=== PATIENT | female | born 1960 | race Caucasian/White ===

== ENCOUNTER 2017-04-19 14:54 | Emergency (ER) | payer OTHER ==
[2017-04-19 14:59] VITALS: BMI 36.3
--- NOTE | 2017-04-19 15:00 | PDOC ---
Rapid Medical Evaluation Time Seen by Provider: 04/19/17 14:56 Medical Evaluation: Allergies Allergy/AdvReac Type Severity Reaction Status Date / Time codeine [Codeine] Allergy hallucinati Verified 05/31/15 14:56 ons. 04/19/17 14:56 I have performed a brief in person evaluation of this patient. The patient presents with chief complaint of : left lower abd pain since this am , nausea, diarrhea since yesterday Pertinent PE findings: 171/109 denies headache took her BP meds this AM I have ordered the following: cbc, cmp, amylase , lipase The patient will proceed to the ER for further evaluation.
[2017-04-19 15:17] LABS: EOSINOPHIL 1.9 % (0-4.5); MCH 29.1 pg (25.7-33.7); MCHC 33.4 g/dl (32.0-36.0); NEUTROPHILS 73.7 % (42.8-82.8); PLATELET COUNT 256 K/MM3 (134-434); WHITE BLOOD COUNT 10.3 K/mm3 (4.0-10.0)
[2017-04-19 15:40] LABS: ALBUMIN 3.8 g/dl (3.4-5.0); AMYLASE 40 U/L (25-115); ANION GAP 6 (8-16); CALCIUM 8.3 mg/dL (8.5-10.1); CO2 27 mmol/L (21-32); CREATININE 0.9 mg/dL (0.55-1.02); GLUCOSE,RANDOM 118 mg/dL (74-106); SGOT/AST 25 U/L (15-37); SGPT/ALT 36 U/L (12-78)
[2017-04-19 15:42] LABS: ALK PHOS 147 U/L (45-117); BILIRUBIN,TOTAL 0.4 mg/dL (0.2-1.0); TOT PROT 7.5 g/dl (6.4-8.2)
[2017-04-19] MEDS ORDERED: KETOROLAC TROMETHAMINE 30 MG/1 ML VIAL IVPUSH ONE (16:26)
--- NOTE | 2017-04-19 16:32 | PDOC ---
History of Present Illness - General Chief Complaint: Pain Stated Complaint: ABD PAIN Time Seen by Provider: 04/19/17 14:56 History Source: Patient - History of Present Illness Timing/Duration: reports: other (this am) Abdominal Pain Onset Location: reports: LLQ Past History - Past Medical History Allergies/Adverse Reactions: Allergies Allergy/AdvReac Type Severity Reaction Status Date / Time codeine [Codeine] Allergy hallucinati Verified 04/19/17 14:57 ons. Home Medications: Ambulatory Orders Ibuprofen [Motrin -] 600 mg PO Q6H PRN #24 tablet 10/08/11 Amox-Tr/K Cl [Augmentin - 875Mg Tablet] 1 tab PO BID #14 tablet 05/31/15 Tramadol HCl 50 mg PO QID PRN #12 tablet 05/31/15 COPD: No HTN: Yes Psychiatric Problems: Yes (ANXIETY.) - Surgical History Abdominal Surgery: Yes (TUMMY TUCK.) - Suicide/Smoking/Psychosocial Hx Smoking Status: No Smoking History: Never smoked Number of Cigarettes Smoked Daily: 0 Hx Alcohol Use: No Drug/Substance Use Hx: No Substance Use Type: None Review of Systems - Review of Systems Constitutional: Yes: Chills Respiratory: No: Shortness of Breath Cardiac (ROS): No: Chest Pain ABD/GI: Yes: Diarrhea, Nausea, Abdominal cramping. No: Vomiting : No: Dysuria, Flank Pain, Hematuria *Physical Exam - Vital Signs Last Vital Signs Temp Pulse Resp BP Pulse Ox 97.5 F L 87 18 179/109 96 04/19/17 14:57 04/19/17 14:57 04/19/17 14:57 04/19/17 14:57 04/19/17 14:57 - Physical Exam General Appearance: Yes: Appropriately Dressed. No: Apparent Distress HEENT: positive: Normal Voice Neck: positive: Supple Respiratory/Chest: positive: Lungs Clear, Normal Breath Sounds. negative: Respiratory Distress Cardiovascular: positive: Regular Rate, S1, S2 Gastrointestinal/Abdominal: positive: Tender (to LLQ), Soft Musculoskeletal: negative: CVA Tenderness Integumentary: positive: Dry, Warm Neurologic: positive: Fully Oriented, Alert, Normal Mood/Affect ED Treatment Course - LABORATORY CBC & Chemistry Diagram: 04/19/17 15:09 04/19/17 15:09 - ADDITIONAL ORDERS Additional order review: Laboratory Results 04/19/17 15:09 Sodium 141 Potassium 4.3 Chloride 108 H Carbon Dioxide 27 Anion Gap 6 L BUN 19 H Creatinine 0.9 Creat Clearance w eGFR > 60 Random Glucose 118 H D Calcium 8.3 L Total Bilirubin 0.4 D AST 25 D ALT 36 D Alkaline Phosphatase 147 H Total Protein 7.5 Albumin 3.8 Total Amylase 40 Lipase 144 04/19/17 15:09 RBC 4.81 MCV 87.0 MCHC 33.4 RDW 13.0 MPV 9.0 Neutrophils % 73.7 Lymphocytes % 18.0 Monocytes % 5.4 Eosinophils % 1.9 Basophils % 1.0 - RADIOLOGY Radiology Studies Ordered: Category Date Time Status ABDOMEN & PELVIS CT WITH CONTR [CT] Stat CT Scan 04/19/17 16:22 Ordered Medical Decision Making - Medical Decision Making 04/19/17 16:27 56-year-old female, history of hypertension, depression, anxiety, endorses history of chronic left lower quadrant pain with no findings on multiple evaluations in the past, states she is scheduled for upcoming endoscopy and colonoscopy, here with sudden onset diaphoresis, chills, multiple episodes of diarrhea, nausea and acute worsening of her left lower quadrant pain since this a.m. No bright blood per rectum, melena, fever or chills. See exam Acute on chronic LLQ pain w/ nausea, diarrhea and chills ? gastroenteritis vs diverticulitis -pain control -zofran -IVF -labs -CT Elevated BP States compliant w/ meds No DE LA CRUZ, dizziness, focal weakness, CP or SOB -will rpt after pain is controlled 04/19/17 16:32 *DC/Admit/Observation/Transfer Diagnosis at time of Disposition: Abdominal pain Qualifiers: Abdominal location: left lower quadrant Qualified Code(s): R10.32 - Left lower quadrant pain - Discharge Dispostion Condition at time of disposition: Improved - Referrals Referrals: STAFF,NOT ON [Primary Care Provider] - - Patient Instructions Printed Discharge Instructions: DI for Abdominal Pain-Adult Additional Instructions: The cause of your abdominal pain is unclear at this time as your labs and CT scan were negative Take motrin or tylenol as needed for pain and follow up with your PMD - Post Discharge Activity
[2017-04-19] MEDS ORDERED: KETOROLAC TROMETHAMINE 30 MG/1 ML VIAL ONE (16:40)
[2017-04-19 18:01] LABS: URINE APPEARANCE CLEAR; URINE BILIRUBIN NEGATIVE (NEGATIVE); URINE BLOOD NEGATIVE (NEGATIVE); URINE COLOR LTYELLOW; URINE GLUCOSE (UA) NEGATIVE (NEGATIVE); URINE KETONE NEGATIVE (NEGATIVE); URINE NITRITE NEGATIVE (NEGATIVE); URINE PROTEIN NEGATIVE (NEGATIVE)
--- NOTE | 2017-04-19 19:28 | PDOC ---
*Physical Exam - Vital Signs Last Vital Signs Temp Pulse Resp BP Pulse Ox 97.5 F L 87 18 179/109 96 04/19/17 14:57 04/19/17 14:57 04/19/17 14:57 04/19/17 14:57 04/19/17 14:57 - Physical Exam General Appearance: Yes: Appropriately Dressed Gastrointestinal/Abdominal: positive: Normal Bowel Sounds, Tender (LLQ), Soft ED Treatment Course - LABORATORY CBC & Chemistry Diagram: 04/19/17 15:09 04/19/17 15:09 - ADDITIONAL ORDERS Additional order review: Laboratory Results 04/19/17 04/19/17 16:22 15:09 Sodium 141 Potassium 4.3 Chloride 108 H Carbon Dioxide 27 Anion Gap 6 L BUN 19 H Creatinine 0.9 Creat Clearance w eGFR > 60 Random Glucose 118 H D Calcium 8.3 L Total Bilirubin 0.4 D AST 25 D ALT 36 D Alkaline Phosphatase 147 H Total Protein 7.5 Albumin 3.8 Total Amylase 40 Lipase 144 Urine Color Ltyellow Urine Appearance Clear Urine pH 7.0 Ur Specific Sears 1.015 Urine Protein Negative Urine Glucose (UA) Negative Urine Ketones Negative Urine Blood Negative Urine Nitrite Negative Urine Bilirubin Negative Urine Urobilinogen 2.0 H 04/19/17 15:09 RBC 4.81 MCV 87.0 MCHC 33.4 RDW 13.0 MPV 9.0 Neutrophils % 73.7 Lymphocytes % 18.0 Monocytes % 5.4 Eosinophils % 1.9 Basophils % 1.0 - Medications Given in the ED: ED Medications Discontinued Medications Generic Name Dose Route Start Last Admin Trade Name Freq PRN Reason Stop Dose Admin Ketorolac Tromethamine 30 mg 04/19/17 16:26 04/19/17 16:45 Toradol Injection - IVPUSH 04/19/17 16:27 30 mg ONCE ONE Administration Medical Decision Making - Medical Decision Making 04/19/17 20:14 Patient reports pain relief. asking to eat. will await CTAP results 04/19/17 21:41 CTAP negative. heaptic steaosis, left adnexa calcification otherwise normal. will d/c home. patient is scheduled for outpatient endoscopy and colonoscopy with GICharley mercer recommend close follow up. 04/19/17 21:42 *DC/Admit/Observation/Transfer Diagnosis at time of Disposition: Abdominal pain Qualifiers: Abdominal location: left lower quadrant Qualified Code(s): R10.32 - Left lower quadrant pain - Discharge Dispostion Disposition: HOME Condition at time of disposition: Improved - Referrals Referrals: STAFF,NOT ON [Primary Care Provider] - - Patient Instructions Printed Discharge Instructions: DI for Abdominal Pain-Adult Additional Instructions: Drink plenty of fluids. The cause of your abdominal pain is unclear at this time as your labs and CT scan were negative Take motrin or tylenol as needed for pain and follow up with your PMD - Post Discharge Activity Forms/Work/School Notes: Back to Work
[2017-04-19 19:29] VITALS: BP 147/96; PULSE 62; TEMP 97.3
[2017-04-19 20:59] LABS: URINE LEUK ESTERASE Negative (NEGATIVE)
--- NOTE | 2017-04-20 10:26 | EKG ---
Test Reason : Blood Pressure : / mmHG Vent. Rate : 070 BPM Atrial Rate : 070 BPM P-R Int : 156 ms QRS Dur : 084 ms QT Int : 384 ms P-R-T Axes : 029 045 021 degrees QTc Int : 414 ms NORMAL SINUS RHYTHM NORMAL ECG NO PREVIOUS ECGS AVAILABLE Confirmed by JUAN GOSS, NASRIN ([id number]) on 04/20/2017 10:26:18 AM Referred By: Confirmed By:NASRIN MARTINEZ MD
== END 2017-04-19 21:52 | disposition home or self-care (01) ==
LOC: JER 14:54
PROC: 3E0333Z Introduction of Anti-inflammatory into Peripheral Vein, Percutaneous Approach (ICD-10-PCS; principal; 2017-04-19)
DX: R10.32 Left lower quadrant pain (principal); I10 Essential (primary) hypertension; F41.9 Anxiety disorder, unspecified
CPT/HCPCS: 36415; 74177-TC; 80053; 81003; 82150; 83690; 85025; 93005; 93010; 99282-25

== ENCOUNTER 2018-04-07 05:39 | Emergency (ER) | payer OTHER ==
[2018-04-07 06:03] VITALS: BP 165/84; PULSE 74; TEMP 97.3; BMI 34.9
--- NOTE | 2018-04-07 06:14 | PDOC ---
History of Present Illness - General Chief Complaint: Chronic pain Stated Complaint: PAIN,LT LEG Time Seen by Provider: 04/07/18 05:58 History Source: Patient - History of Present Illness Initial Comments: 04/07/18 06:31 57 year old female reports that she felt pot in her left knee while pushing a heavy cart at work in july 2017. since then she has been having pain to the left knee. she was seen [facility] s/p xray, she was referred to PT. patient reports that PT didnt help and patient stopped going to PT several months ago. patient reports feeling and sweating at 04/07/18 06:32 Past History - Past Medical History Allergies/Adverse Reactions: Allergies Allergy/AdvReac Type Severity Reaction Status Date / Time codeine [Codeine] Allergy hallucinati Verified 04/07/18 05:56 ons. Home Medications: Ambulatory Orders Ibuprofen [Ibu] 600 mg PO QID PRN #20 tablet 04/07/18 COPD: No HTN: Yes Psychiatric Problems: Yes (ANXIETY.) - Surgical History Abdominal Surgery: Yes (TUMMY TUCK.) - Suicide/Smoking/Psychosocial Hx Smoking Status: No Smoking History: Never smoked Have you smoked in the past 12 months: No Number of Cigarettes Smoked Daily: 0 Information on smoking cessation initiated: No Hx Alcohol Use: No Drug/Substance Use Hx: No Substance Use Type: None Review of Systems - Review of Systems Able to Perform ROS?: Yes Is the patient limited Maori proficient: No Musculoskeletal: Yes: Other (knee pain) *Physical Exam - Vital Signs Last Vital Signs Temp Pulse Resp BP Pulse Ox 97.3 F L 74 20 165/84 97 04/07/18 05:56 04/07/18 05:56 04/07/18 05:56 04/07/18 05:56 04/07/18 05:56 - Physical Exam General Appearance: Yes: Appropriately Dressed Musculoskeletal: positive: Normal Inspection, Other (left knee swelling) Extremity: positive: Other (left knee swelling. not warm to touch. able to leg raise. ) Integumentary: positive: Normal Color, Dry, Warm Medical Decision Making - Medical Decision Making A: knee pain Nisha control RICE xray outpatient ortho follow up *DC/Admit/Observation/Transfer Diagnosis at time of Disposition: Muscle ache of extremity Knee pain, left Qualifiers: Chronicity: acute Qualified Code(s): M25.562 - Pain in left knee - Discharge Dispostion Disposition: HOME Condition at time of disposition: Fair - Prescriptions Prescriptions: Ibuprofen [Ibu] 600 mg PO QID PRN #20 tablet PRN Reason: Mild Pain - Referrals Referrals: Cayden Linares [Primary Care Provider] - Neto Soliman MD [Staff Physician] - Call tomorrow - Patient Instructions Printed Discharge Instructions: DI for Knee Effusion Additional Instructions: please follow up with an orthopedic doctor as soon as possible. take ibuprofen as prescribed. r - Post Discharge Activity Forms/Work/School Notes: Back to Work
[2018-04-07] MEDS ORDERED: KETOROLAC TROMETHAMINE 30 MG/1 ML VIAL IM ONE (06:15)
[2018-04-07] MEDS ORDERED: KETOROLAC TROMETHAMINE 30 MG/1 ML VIAL ONE (06:21)
--- NOTE | 2018-04-07 07:24 | PDOC ---
*Physical Exam - Vital Signs Last Vital Signs Temp Pulse Resp BP Pulse Ox 97.3 F L 74 20 165/84 97 04/07/18 05:56 04/07/18 05:56 04/07/18 05:56 04/07/18 05:56 04/07/18 05:56 ED Treatment Course - Medications Given in the ED: ED Medications Discontinued Medications Generic Name Dose Route Start Last Admin Trade Name Freq PRN Reason Stop Dose Admin Ketorolac Tromethamine 30 mg 04/07/18 06:15 04/07/18 06:19 Toradol Injection - IM 04/07/18 06:16 30 mg ONCE ONE Administration Medical Decision Making - Medical Decision Making 04/07/18 06:59 Chronic persistent L knee px after injury 07/2017. Pt describes straining while moving a heavy load and then a pop in her L knee. Was started on PT but she quit after marginal results. 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 analgesia f/u xr dc with close ortho follow up, out pt mri, pt *DC/Admit/Observation/Transfer Diagnosis at time of Disposition: Muscle ache of extremity - Prescriptions Prescriptions: Ibuprofen [Ibu] 600 mg PO QID PRN #20 tablet PRN Reason: Mild Pain - Referrals Referrals: Cayden Linares [Primary Care Provider] - - Patient Instructions - Post Discharge Activity
== END 2018-04-07 07:08 | disposition home or self-care (01) ==
LOC: JER 05:39
PROC: 3E0233Z Introduction of Anti-inflammatory into Muscle, Percutaneous Approach (ICD-10-PCS; principal; 2018-04-07)
DX: M25.562 Pain in left knee (principal); F41.9 Anxiety disorder, unspecified; I10 Essential (primary) hypertension
CPT/HCPCS: 73564-TC-LT-FY; 99282-25

== ENCOUNTER 2019-01-26 06:45 | Day surgery (SDC) | payer OTHER ==
[2019-01-20 15:52] VITALS: BMI 34.5
[2019-01-26] MEDS ORDERED: LACTATED RINGERS SOLUTION 1,000 ML IV SCH (07:30)
[2019-01-26] MEDS ORDERED: oxyCODONE HCL 5 MG TABLET PO PRN ×2 (07:30)
[2019-01-26] MEDS ORDERED: ONDANSETRON 4 MG/2 ML VIAL IVPUSH PRN (07:30)
[2019-01-26] MEDS ORDERED: LIDOCAINE HCL/PF 2% SDV 5ML VIAL ONE (07:44)
[2019-01-26] MEDS ORDERED: PROPOFOL 20 ML ONE ×2 (07:45→08:47)
[2019-01-26] MEDS ORDERED: DEXAMETHASONE SOD PHOSPHATE 4 MG/1 ML VIAL ONE (07:46)
[2019-01-26] MEDS ORDERED: KETOROLAC TROMETHAMINE 30 MG/1 ML VIAL ONE (07:46)
[2019-01-26] MEDS ORDERED: MIDAZOLAM HCL 2 MG/2 ML SINGLE DOSE VIAL ONE (07:57)
[2019-01-26] MEDS ORDERED: BUPIVACAINE HCL 0.25% 125 MG/50 ML VIAL ONE (08:23)
--- NOTE | 2019-01-26 08:38 | OP ---
Operative Note - Note: Operative Date: 01/26/19 Pre-Operative Diagnosis: Left medial meniscus tear Operation: Partial left medial meniscectomy Post-Operative Diagnosis: Same as Pre-op Surgeon: Neto Soliman [employer] Attorney: Pricila Veliz Anesthesia: General Operative Report Dictated: Yes
--- NOTE | 2019-01-26 10:13 | OP ---
DATE OF OPERATION: 01/26/2019 PREOPERATIVE DIAGNOSIS: Left knee medial meniscal tear. POSTOPERATIVE DIAGNOSIS: Left knee medial meniscal tear. PROCEDURE: Left knee arthroscopy with partial medial meniscectomy. SURGEON: Neto Rios MD CLINICAL REHABILITATION SPECIALIST: KATIE Mchugh ANESTHESIA: General. POSTOPERATIVE CONDITION: Stable. COMPLICATIONS: None. INDICATIONS: This is a pleasant woman who had been suffering from medial knee pain. Treatment options including nonoperative versus operative treatment were discussed. Operative risks were reviewed in detail including bleeding, infection, neurovascular injury, need for further surgery, postoperative pain and stiffness, progression of osteoarthritis. We discussed medical risks such as heart attack, stroke, DVT, PE, or . I addressed the patient's questions and concerns. She voiced understanding and elected to proceed. DESCRIPTION OF PROCEDURE: The patient was brought to the operating room where general anesthetic was administered. The left lower extremity was then prepped and draped in the usual sterile fashion. A preoperative dose of antibiotics was given, and the usual timeout procedure was performed. The portal sites were then marked out and injected subcutaneously with 0.25% Marcaine. A lateral portal was now established. Arthroscope was passed into the patellofemoral joint. Examination of the patellofemoral joint demonstrated moderate partial-thickness chondral loss along the patellar surface. There was superficial streak wear along the trochlea. Passing the arthroscope into the notch demonstrated intact ACL and PCL. A medial portal was now established under spinal needle localization. The medial compartment was examined. The medial femoral condyle demonstrated also moderate, partial-thickness, diffuse chondral changes with a small area of full-thickness chondral loss along the anterior aspect of the condyle. The meniscus was inspected, demonstrating a complex tear involving mostly the posterior horn, but extending into the body. Utilizing a combination of meniscal biters and a shaver, the medial meniscus was debrided down to a stable base. Attention was then turned laterally. Here, the lateral compartment was inspected. There was mild superficial articular wear. The meniscus itself appeared intact and was probed and found to be stable. At this point, the excess fluid was withdrawn from the joint. The portals were sutured using 3-0 nylon. Sterile dressings were placed. Patient was extubated and transferred to recovery room in stable condition. NETO RIOS M.D. [id number]
[2019-01-26 12:21] VITALS: TEMP 97.7
[2019-01-26 12:28] VITALS: BP 137/77; PULSE 78
== END 2019-01-26 12:00 | disposition home or self-care (01) ==
LOC: FASU 06:45
PROVIDERS: ATTEND Orthopaedic Surgery Sports Medicine
PROC: 0SBD4ZZ Excision of Left Knee Joint, Percutaneous Endoscopic Approach (ICD-10-PCS; principal; 2019-01-26 09:06)
DX: S83.242A Other tear of medial meniscus, current injury, left knee, initial encounter (principal); X58.XXXA Exposure to other specified factors, initial encounter; Y93.9 Activity, unspecified; Y92.9 Unspecified place or not applicable
CPT/HCPCS: 94760

== ENCOUNTER 2019-11-16 07:36 | Day surgery (SDC) | payer OTHER ==
[2019-11-14 12:34] VITALS: BMI 34.7
[2019-11-16] MEDS ORDERED: MIDAZOLAM HCL 2 MG/2 ML SINGLE DOSE VIAL ONE (08:35)
[2019-11-16 09:12] VITALS: TEMP 97.8
[2019-11-16 09:47] VITALS: BP 127/77; PULSE 76
== END 2019-11-16 10:54 | disposition home or self-care (01) ==
LOC: JASU-ENDO 07:36
PROVIDERS: ATTEND Internal Medicine Gastroenterology
PROC: 0DB68ZX Excision of Stomach, Via Natural or Artificial Opening Endoscopic, Diagnostic (ICD-10-PCS; principal; 2019-11-16 09:00)
DX: K29.50 Unspecified chronic gastritis without bleeding (principal); I10 Essential (primary) hypertension; R10.13 Epigastric pain
CPT/HCPCS: 88305-TC; 88342-TC

== ENCOUNTER 2019-11-21 04:50 | Day surgery (SDC) | payer OTHER ==
[2019-11-20 08:23] VITALS: BMI 34.9
[2019-11-21 09:05] VITALS: TEMP 98.5
[2019-11-21 09:34] VITALS: BP 127/73
[2019-11-21 09:52] VITALS: PULSE 70
== END 2019-11-21 10:30 | disposition home or self-care (01) ==
LOC: JASU-ENDO 04:50
PROVIDERS: ATTEND Internal Medicine Gastroenterology
PROC: 0DJD8ZZ Inspection of Lower Intestinal Tract, Via Natural or Artificial Opening Endoscopic (ICD-10-PCS; principal; 2019-11-21 09:00)
DX: Z12.11 Encounter for screening for malignant neoplasm of colon (principal); K64.8 Other hemorrhoids; R10.9 Unspecified abdominal pain

== ENCOUNTER 2020-05-29 10:53 | Day surgery (SDC) | payer OTHER ==
[2020-05-22 15:46] VITALS: BMI 36.3
[2020-05-29 11:38] VITALS: BP 143/85; PULSE 78; TEMP 98
== END 2020-05-29 17:31 | disposition home or self-care (01) ==
LOC: FM/S 10:53 → UNDOADMIN 10:53 → FASUSAT 10:53 → EDSTATUS 13:00 → FASUSAT 17:31 → UNDODISIN 17:31
PROVIDERS: ATTEND Orthopaedic Surgery
PROC: 0SRD0JZ Replacement of Left Knee Joint with Synthetic Substitute, Open Approach (ICD-10-PCS; principal; 2020-05-29)
DX: Z53.8 Procedure and treatment not carried out for other reasons (principal); S83.232A Complex tear of medial meniscus, current injury, left knee, initial encounter; W19.XXXA Unspecified fall, initial encounter; Z91.81 History of falling; Y93.9 Activity, unspecified; Y92.9 Unspecified place or not applicable

== ENCOUNTER 2020-05-29 12:34 | Emergency (ER) | payer OTHER ==
[2020-05-29 12:53] VITALS: BP 140/83; PULSE 71; TEMP 98.9; BMI 36.3
== END 2020-05-29 16:16 | disposition home or self-care (01) ==
LOC: FER 12:34
DX: M25.522 Pain in left elbow (principal); R53.1 Weakness; M25.562 Pain in left knee
CPT/HCPCS: 70450-TC; 72125-TC; 73070-TC-LT-FY; 73562-TC-LT-FY; 99285-25

== ENCOUNTER 2020-07-24 10:00 | Day surgery (SDC) | payer OTHER ==
[2020-07-12 12:31] VITALS: BMI 36.3
[2020-07-24] MEDS ORDERED: VANCOMYCIN 1,000 MG VIAL (RESTRICTED TO ID ONLY) ONE (10:37)
[2020-07-24] MEDS ORDERED: PROPOFOL 20 ML ONE ×2 (11:09)
[2020-07-24] MEDS ORDERED: DEXAMETHASONE SOD PHOSPHATE 10 MG/1 ML VIAL ONE (11:12)
[2020-07-24] MEDS ORDERED: MIDAZOLAM HCL 2 MG/2 ML SINGLE DOSE VIAL ONE ×2 (11:12→12:46)
[2020-07-24] MEDS ORDERED: BUPIVACAINE HCL/PF 0.5% (5 MG/ML) 30 ML VIAL IJ ONE (11:13)
[2020-07-24] MEDS ORDERED: ceFAZolin SODIUM 1 GM VIAL ONE ×2 (12:40→21:24)
[2020-07-24] MEDS ORDERED: TRANEXAMIC ACID 1000 MG/10 ML VIAL ONE (12:40)
[2020-07-24] MEDS ORDERED: BUPIVICAINE 0.25%/MORPH PF/KETOROLAC - 51ML DISP.SYRINGE IA ONE ×2 (12:54→13:48)
[2020-07-24] MEDS ORDERED: ONDANSETRON 4 MG/2 ML VIAL ONE (13:02)
[2020-07-24] MEDS ORDERED: MAGNESIUM HYDROX 2400MG/30ML ORAL SUSPENSION 30 ML CUP PO PRN (14:42)
[2020-07-24] MEDS ORDERED: MAG HYDROX/AL HYDROX/SIMETH 30 ML UNIT-DOSE CUP PO PRN (14:42)
[2020-07-24] MEDS ORDERED: ONDANSETRON 4 MG/2 ML VIAL IVPUSH PRN ×2 (14:42→14:44)
[2020-07-24] MEDS ORDERED: PROMETHAZINE HCL 25 MG/1 ML VIAL IVPUSH PRN (14:44)
[2020-07-24] MEDS ORDERED: LACTATED RINGERS SOLUTION 1,000 ML IV SCH (14:45)
[2020-07-24] MEDS ORDERED: ACETAMINOPHEN 325 MG TABLET (FP) ONE (15:21)
[2020-07-24] MEDS: ACETAMINOPHEN 325 MG TABLET (FP) PO SCH (15:25)
[2020-07-24] MEDS ORDERED: ACETAMINOPHEN 325 MG TABLET (FP) PO PRN (16:12)
[2020-07-24] MEDS: oxyCODONE HCL 5 MG TABLET PO PRN ×2 (18:22→23:49)
[2020-07-24] MEDS ORDERED: DEXTROSE 5%-WATER 100 ML IVPB ONE (21:25)
[2020-07-24] MEDS: SENNOSIDES/DOCUSATE COMBO (SENNA PLUS) TABLET (UD) PO SCH (21:37)
[2020-07-24] MEDS: CEFAZOLIN 2 GM in DEXTROSE 5%-WATER 100 ML IVPB SCH (21:37)
[2020-07-25] MEDS ORDERED: ceFAZolin SODIUM 1 GM VIAL ONE (01:05)
[2020-07-25] MEDS ORDERED: DEXTROSE 5%-WATER 100 ML IVPB ONE (01:06)
[2020-07-25] MEDS: CEFAZOLIN 2 GM in DEXTROSE 5%-WATER 100 ML IVPB SCH (01:13)
[2020-07-25] MEDS: oxyCODONE HCL 5 MG TABLET PO PRN ×3 (06:10→13:36)
[2020-07-25 07:47] LABS: HEMATOCRIT 39.7 % (32.4-45.2); HEMOGLOBIN 13.1 GM/dl (10.7-15.3); MCH 29.7 pg (25.7-33.7); MEAN CELL VOLUME 89.9 fl (80-96); MEAN PLT VOLUME 8.8 fl (7.5-11.1); PLATELET COUNT 283 K/MM3 (134-434); RBC 4.41 M/mm3 (3.60-5.2); RDW 12.3 % (11.6-15.6); WHITE BLOOD COUNT 15.7 K/mm3 (4.0-10.8)
[2020-07-25 07:48] LABS: CALCIUM 8.9 mg/dl (8.5-10); CREATININE 0.8 mg/dl (0.55-1.3); POTASSIUM 4.3 mmol/L (3.5-5.1)
[2020-07-25] MEDS ORDERED: CEFAZOLIN 2 GM/D5W 2 GM/50 ML ML IVPB SCH (09:34)
[2020-07-25] MEDS: SENNOSIDES/DOCUSATE COMBO (SENNA PLUS) TABLET (UD) PO SCH (09:42)
[2020-07-25] MEDS: ACETAMINOPHEN 325 MG TABLET (FP) PO SCH (09:44)
[2020-07-25] MEDS ORDERED: TOPIRAMATE 25 MG TABLET PO SCH (10:00)
[2020-07-25] MEDS ORDERED: MULTIVITAMINS (DAILY MVI) TABLET (FP) PO SCH (10:00)
[2020-07-25] MEDS ORDERED: PANTOPRAZOLE 40 MG TABLET PO SCH (10:00)
[2020-07-25] MEDS ORDERED: MED PO SCH (10:00)
[2020-07-25] MEDS ORDERED: ENOXAPARIN NA (PORCINE) 40 MG/0.4 ML DISP.SYRIN SQ SCH (12:00)
[2020-07-25 16:08] VITALS: BP 141/72; PULSE 85; TEMP 98.7
== END 2020-07-25 17:21 | disposition home or self-care (01) ==
LOC: FASUSAT 10:00 → EDSTATUS 12:00 → FM/S 15:55 → FASUSAT 07-25 17:21
PROVIDERS: ATTEND Orthopaedic Surgery
PROC: 8E0YXBZ Computer Assisted Procedure of Lower Extremity (ICD-10-PCS; 2020-07-24)
PROC: 0SRD0L9 Replacement of Left Knee Joint with Medial Unicondylar Synthetic Substitute, Cemented, Open Approach (ICD-10-PCS; principal; 2020-07-24 12:51)
DX: M17.12 Unilateral primary osteoarthritis, left knee (principal); I10 Essential (primary) hypertension; D50.9 Iron deficiency anemia, unspecified; F41.8 Other specified anxiety disorders
CPT/HCPCS: 27446; C1776; 36415; 73560-TC-LT-FY; 80048; 85027; 94760; 97010-GP; 97116-GP; 97161-GP; J1100

== ENCOUNTER 2021-03-25 15:17 | Emergency (ER) | payer OTHER ==
[2021-03-25 15:27] VITALS: TEMP 98; BMI 36.3
[2021-03-25] MEDS ORDERED: ACETAMINOPHEN 1000 MG/100 ML VIAL IVPB ONE (16:52)
[2021-03-25] MEDS ORDERED: ONDANSETRON 4 MG/2 ML VIAL IVPUSH ONE (16:52)
[2021-03-25] MEDS ORDERED: ACETAMINOPHEN INJECTION 100 ML IVPB ONE (17:08)
[2021-03-25] MEDS ORDERED: ONDANSETRON 4 MG/2 ML VIAL ONE (17:08)
[2021-03-25 17:46] LABS: EOS % 1.6 % (0-4.5); HEMATOCRIT 44.5 % (32.4-45.2); HEMOGLOBIN 14.7 GM/dL (10.7-15.3); LYMPH % 24.3 % (8-40); MCHC 33.1 g/dl (32.0-36.0); MEAN CELL VOLUME 87.6 fl (80-96); MONO % 4.7 % (3.8-10.2); NEUT % 68.4 % (42.8-82.8); PLATELET COUNT 288 10^3/uL (134-434); RBC 5.08 M/mm3 (3.60-5.2); RDW 13.3 % (11.6-15.6); WHITE BLOOD COUNT 10.8 K/mm3 (4.0-10.0)
[2021-03-25 17:49] LABS: EPI CELLS 27 /uL (0-25.1); HYALINE CASTS 1 /uL (0-3.1); URINE APPEARANCE CLEAR; URINE BACTERIA 1674 /uL (0-1359); URINE BILIRUBIN NEGATIVE (NEGATIVE); URINE COLOR YELLOW; URINE GLUCOSE (UA) NEGATIVE (NEGATIVE); URINE KETONE TRACE (NEGATIVE); URINE LEUK ESTERASE NEGATIVE (NEGATIVE); URINE NITRITE NEGATIVE (NEGATIVE); URINE PROTEIN NEGATIVE (NEGATIVE); URINE RBC 23 /uL (0-23.9); URINE WBC 20 /uL (0-25.8)
[2021-03-25 18:11] LABS: BLOOD UREA NITROGEN 19.1 mg/dL (7-18); CALCIUM 9.1 mg/dL (8.5-10.1)
[2021-03-25 18:14] LABS: CREATININE 0.8 mg/dL (0.55-1.3)
[2021-03-25 18:16] LABS: BILIRUBIN,TOTAL 0.5 mg/dL (0.2-1); TOT PROT 7.9 g/dl (6.4-8.2)
[2021-03-25 21:22] VITALS: BP 129/78; PULSE 88
== END 2021-03-25 21:20 | disposition home or self-care (01) ==
LOC: JER 15:17
PROC: 3E0333Z Introduction of Anti-inflammatory into Peripheral Vein, Percutaneous Approach (ICD-10-PCS; principal; 2021-03-25)
PROC: 3E033GC Introduction of Other Therapeutic Substance into Peripheral Vein, Percutaneous Approach (ICD-10-PCS; 2021-03-25)
DX: R10.9 Unspecified abdominal pain (principal); N93.9 Abnormal uterine and vaginal bleeding, unspecified
CPT/HCPCS: 36415; 71045-TC-FY; 74177-TC; 76830-TC; 80053; 81003; 83690; 85025; 87086; 99285-25; C9803; J0131; Q9967; U0003; U0005

== ENCOUNTER 2021-08-28 04:21 | Day surgery (SDC) | payer OTHER ==
[2021-08-28 08:16] VITALS: BMI 35.3
[2021-08-28 09:39] VITALS: TEMP 98.1
[2021-08-28 10:10] VITALS: BP 108/62; PULSE 68
== END 2021-08-28 10:51 | disposition home or self-care (01) ==
LOC: JASU-ENDO 04:21
PROVIDERS: ATTEND Internal Medicine Gastroenterology
PROC: 0DJD8ZZ Inspection of Lower Intestinal Tract, Via Natural or Artificial Opening Endoscopic (ICD-10-PCS; principal; 2021-08-28 08:45)
DX: Z12.11 Encounter for screening for malignant neoplasm of colon (principal); K64.8 Other hemorrhoids; I10 Essential (primary) hypertension

== ENCOUNTER 2022-09-19 14:26 | Inpatient (IN) | payer OTHER ==
[2022-09-19] MEDS ORDERED: ASPIRIN 81 MG CHEWABLE TABLETS PO ONE (14:56)
[2022-09-19] MEDS ORDERED: LABETALOL HCL 5 MG/1 ML (100MG/20 ML VIAL) IVPUSH ONE ×3 (15:05→15:48)
[2022-09-19] MEDS ORDERED: ACETAMINOPHEN 1000 MG/100 ML BAG IVPB ONE (15:08)
[2022-09-19] MEDS ORDERED: ACETAMINOPHEN INJECTION 100 ML IVPB ONE (15:21)
[2022-09-19] MEDS ORDERED: LABETALOL HCL 20 MG/4 ML VIAL ONE ×2 (15:21→15:56)
[2022-09-19] MEDS ORDERED: ASPIRIN 81 MG CHEWABLE TABLETS ONE (15:21)
[2022-09-19 15:34] LABS: HEMATOCRIT 49.6 % (32.4-45.2); HEMOGLOBIN 16.8 GM/dL (10.7-15.3); MCH 29.3 pg (25.7-33.7); MCHC 33.8 g/dl (32.0-36.0); MEAN CELL VOLUME 86.5 fl (80-96); PLATELET COUNT 381 10^3/uL (134-434); RBC 5.74 M/mm3 (3.60-5.2); RDW 13.4 % (11.6-15.6); WHITE BLOOD COUNT 21.4 K/mm3 (4.0-10.0)
[2022-09-19 15:40] LABS: INR 1.06 (0.83-1.09); PROTHROMBIN TIME (PATIENT) 12.3 SEC (9.7-13.0)
[2022-09-19 15:43] LABS: ACTIVATED PTT 32.8 SECONDS (25.2-36.5)
[2022-09-19] MEDS ORDERED: METOCLOPRAMIDE HCL INJECTION 10 MG/2 ML VIAL IVPB ONE (15:48)
[2022-09-19] MEDS ORDERED: FAMOTIDINE 20 MG/50 ML IVPB 20 MG/50 ML MG IVPB ONE (15:48)
[2022-09-19] MEDS ORDERED: PIPERACILLIN/TAZOB 4.5 GM 4.5 GM in DEXTROSE 5%-WATER 100 ML IVPB ONE (15:55)
[2022-09-19] MEDS ORDERED: METOCLOPRAMIDE HCL INJECTION 10 MG/2 ML VIAL ONE (16:00)
[2022-09-19] MEDS ORDERED: FAMOTIDINE 10 MG/ML VIAL IVPB ONE (16:00)
[2022-09-19] MEDS ORDERED: PIPERACILLIN/TAZOB 4.5 GM 4.5 GM/100 ML BAG IVPB ONE (16:00)
[2022-09-19 16:01] LABS: CALCIUM 9.6 mg/dL (8.5-10.1)
[2022-09-19 16:02] LABS: ALBUMIN 4.7 g/dl (3.4-5.0); BLOOD UREA NITROGEN 13.4 mg/dL (7-18); MAGNESIUM 1.9 mg/dL (1.8-2.4)
[2022-09-19 16:06] LABS: BILIRUBIN,TOTAL 0.7 mg/dL (0.2-1); TOT PROT 9.6 g/dl (6.4-8.2)
[2022-09-19 16:18] LABS: ANISOCYTOSIS 2+; MACROCYTOSIS 0
[2022-09-19 16:22] LABS: LACTIC ACID 4.2 mmol/L (0.4-2.0)
[2022-09-19 16:50] LABS: POTASSIUM 4.3 mmol/L (3.5-5.1)
[2022-09-19 16:51] LABS: CALCIUM 9.5 mg/dL (8.5-10.1)
[2022-09-19 16:55] LABS: CREATININE 0.9 mg/dL (0.55-1.3)
[2022-09-19 18:01] LABS: EPI CELLS 21 /uL (0-25.1); HYALINE CASTS 2 /uL (0-3.1); URINE APPEARANCE CLEAR; URINE BACTERIA 4 /uL (0-1359); URINE BILIRUBIN NEGATIVE (NEGATIVE); URINE COLOR YELLOW; URINE GLUCOSE (UA) TRACE (NEGATIVE); URINE KETONE TRACE (NEGATIVE); URINE LEUK ESTERASE NEGATIVE (NEGATIVE); URINE NITRITE NEGATIVE (NEGATIVE); URINE PROTEIN 4+ (NEGATIVE); URINE UROBILINOGEN 0.2 mg/dL (0.2-1.0); URINE WBC 5 /uL (0-25.8)
[2022-09-19 18:36] LABS: LACTIC ACID 5.6 mmol/L (0.4-2.0)
[2022-09-19] MEDS ORDERED: SODIUM CHLORIDE 0.9% 500 ML INFUS.BAG IV ONE (18:39)
[2022-09-19 18:41] LABS: URINE RBC 167.4 /uL (0-23.9); YEAST OCCASIONAL (NEGATIVE)
[2022-09-19 21:55] LABS: LACTIC ACID 3.3 mmol/L (0.4-2.0)
[2022-09-19] MEDS: LACTATED RINGERS SOLUTION 1,000 ML IV SCH (22:09)
[2022-09-20] MEDS ORDERED: PIPERACILLIN/TAZOB 3.375 GM 3.375 GM in DEXTROSE 5%-WATER - 50 ML IVPB SCH (00:01)
[2022-09-20 01:07] VITALS: BMI 36.3
[2022-09-20] MEDS: CEFOXITIN SODIUM 1 GM in DEXTROSE 5%-WATER 100 ML IVPB SCH ×3 (03:25→18:03)
[2022-09-20] MEDS ORDERED: ACETAMINOPHEN 1000 MG/100 ML BAG IVPB ONE (05:09)
[2022-09-20 08:34] LABS: HEMATOCRIT 39.3 % (32.4-45.2); HEMOGLOBIN 13.2 GM/dL (10.7-15.3); MCH 29.1 pg (25.7-33.7); MCHC 33.6 g/dl (32.0-36.0); MEAN CELL VOLUME 86.5 fl (80-96); MEAN PLT VOLUME 8.9 fl (7.5-11.1); PLATELET COUNT 271 10^3/uL (134-434); RBC 4.54 M/mm3 (3.60-5.2); RDW 13.3 % (11.6-15.6); WHITE BLOOD COUNT 13.9 K/mm3 (4.0-10.0)
[2022-09-20 08:39] LABS: INR 1.1 (0.83-1.09); PROTHROMBIN TIME (PATIENT) 12.8 SEC (9.7-13.0)
[2022-09-20 08:42] LABS: ACTIVATED PTT 30.1 SECONDS (25.2-36.5)
[2022-09-20 08:48] LABS: POTASSIUM 3.4 mmol/L (3.5-5.1)
[2022-09-20 08:50] LABS: BLOOD UREA NITROGEN 14.5 mg/dL (7-18); CALCIUM 8.2 mg/dL (8.5-10.1); MAGNESIUM 1.9 mg/dL (1.8-2.4)
[2022-09-20 08:53] LABS: CREATININE 0.7 mg/dL (0.55-1.3)
[2022-09-20 08:55] LABS: BILIRUBIN,TOTAL 0.6 mg/dL (0.2-1)
[2022-09-20 08:57] LABS: PHOSPHOROUS 2.6 mg/dL (2.5-4.9)
[2022-09-20 09:00] LABS: ALBUMIN 3.4 g/dl (3.4-5.0); TOT PROT 6.6 g/dl (6.4-8.2)
[2022-09-20] MEDS: ARIPiprazole 2 MG TABLET PO SCH (09:25)
[2022-09-20] MEDS: KCL 10 MEQ IVPB 10 MEQ/100 ML INFUS.BAG IVPB SCH ×2 (11:51→13:43)
[2022-09-20] MEDS ORDERED: ACETAMINOPHEN 325 MG TABLET (FP) PO ONE (17:45)
[2022-09-20] MEDS: LACTATED RINGERS SOLUTION 1,000 ML IV SCH (20:00)
[2022-09-21] MEDS ORDERED: PIPERACILLIN/TAZOB 3.375 GM 3.375 GM in DEXTROSE 5%-WATER - 50 ML IVPB SCH (03:00)
[2022-09-21] MEDS: CEFOXITIN SODIUM 1 GM in DEXTROSE 5%-WATER 100 ML IVPB SCH ×2 (03:38→10:13)
[2022-09-21 08:42] LABS: INR 1.1 (0.83-1.09); PROTHROMBIN TIME (PATIENT) 12.8 SEC (9.7-13.0)
[2022-09-21 08:43] LABS: ACTIVATED PTT 29.8 SECONDS (25.2-36.5); BASO % 0.8 % (0-2.0); EOS % 1.6 % (0-4.5); HEMATOCRIT 39.3 % (32.4-45.2); HEMOGLOBIN 13.5 GM/dL (10.7-15.3); MCH 29.6 pg (25.7-33.7); MCHC 34.3 g/dl (32.0-36.0); MEAN CELL VOLUME 86.1 fl (80-96); MEAN PLT VOLUME 8.6 fl (7.5-11.1); MONO % 5.1 % (3.8-10.2); NEUT % 75.5 % (42.8-82.8); PLATELET COUNT 263 10^3/uL (134-434); RBC 4.56 M/mm3 (3.60-5.2); RDW 13.2 % (11.6-15.6); WHITE BLOOD COUNT 9.5 K/mm3 (4.0-10.0)
[2022-09-21 08:57] LABS: POTASSIUM 3.8 mmol/L (3.5-5.1)
[2022-09-21 09:00] LABS: CALCIUM 8.6 mg/dL (8.5-10.1)
[2022-09-21 09:01] LABS: ALBUMIN 3.7 g/dl (3.4-5.0); BLOOD UREA NITROGEN 10.9 mg/dL (7-18); MAGNESIUM 2.2 mg/dL (1.8-2.4)
[2022-09-21 09:04] LABS: CREATININE 0.7 mg/dL (0.55-1.3); PHOSPHOROUS 2.1 mg/dL (2.5-4.9)
[2022-09-21 09:05] LABS: BILIRUBIN,TOTAL 0.8 mg/dL (0.2-1)
[2022-09-21 09:06] LABS: TOT PROT 6.8 g/dl (6.4-8.2)
[2022-09-21] MEDS: ARIPiprazole 2 MG TABLET PO SCH (10:14)
[2022-09-21] MEDS ORDERED: LIDOCAINE HCL/PF 2% SDV 5ML VIAL ONE (13:47)
[2022-09-21] MEDS ORDERED: PROPOFOL 20 ML ONE (13:47)
[2022-09-21] MEDS ORDERED: MIDAZOLAM HCL 2 MG/2 ML SINGLE DOSE VIAL ONE (13:48)
[2022-09-21] MEDS ORDERED: ROCURONIUM BROMIDE 50 MG/5 ML SYRINGE ONE (13:48)
[2022-09-21] MEDS ORDERED: SUCCINYLCHOLINE CHLORIDE 200 MG/10 ML SYRINGE ONE (13:48)
[2022-09-21] MEDS ORDERED: BUPIVACAINE HCL/PF 0.5% (5MG/ML) 10 ML VIAL ONE (14:13)
[2022-09-21] MEDS ORDERED: HEPARIN NA (PORCINE) 5,000 UNITS/ML 1ML VIAL ONE (14:31)
[2022-09-21] MEDS ORDERED: BUPIVACAINE HCL/PF 0.5% (5 MG/ML) 30 ML VIAL IJ ONE (14:49)
[2022-09-21] MEDS ORDERED: hydrALAZINE HCL 20 MG/ML VIAL ONE (15:00)
[2022-09-21] MEDS ORDERED: ONDANSETRON 4 MG/2 ML VIAL ONE ×2 (15:17→16:38)
[2022-09-21] MEDS ORDERED: KETOROLAC TROMETHAMINE 30 MG/1 ML VIAL ONE (15:17)
[2022-09-21] MEDS ORDERED: ONDANSETRON 4 MG/2 ML VIAL IVPUSH PRN (16:00)
[2022-09-21] MEDS ORDERED: LACTATED RINGERS SOLUTION 1,000 ML IV SCH (16:00)
[2022-09-21] MEDS ORDERED: PROMETHAZINE HCL 25 MG/1 ML VIAL IVPB PRN (16:00)
[2022-09-21] MEDS ORDERED: ACETAMINOPHEN 1000 MG/100 ML BAG IVPB ONE (16:01)
[2022-09-21] MEDS ORDERED: NAPH,MB-DB/K PH,MBDB POWDER PACKET PO ONE (16:09)
[2022-09-21] MEDS ORDERED: ACETAMINOPHEN INJECTION 100 ML IVPB ONE (16:23)
[2022-09-22] MEDS ORDERED: ACETAMINOPHEN 1000 MG/100 ML BAG IVPB PRN (05:25)
[2022-09-22 08:27] LABS: HEMATOCRIT 39.7 % (32.4-45.2); HEMOGLOBIN 13.5 GM/dL (10.7-15.3); MCH 29.3 pg (25.7-33.7); MCHC 34.1 g/dl (32.0-36.0); MEAN CELL VOLUME 86.1 fl (80-96); MEAN PLT VOLUME 8.7 fl (7.5-11.1); PLATELET COUNT 257 10^3/uL (134-434); RBC 4.61 M/mm3 (3.60-5.2); RDW 13.2 % (11.6-15.6); WHITE BLOOD COUNT 12.9 K/mm3 (4.0-10.0)
[2022-09-22 08:34] LABS: ALBUMIN 3.5 g/dl (3.4-5.0); BLOOD UREA NITROGEN 12.2 mg/dL (7-18); CALCIUM 8.7 mg/dL (8.5-10.1); MAGNESIUM 2.2 mg/dL (1.8-2.4)
[2022-09-22 08:37] LABS: CREATININE 0.7 mg/dL (0.55-1.3); PHOSPHOROUS 2.8 mg/dL (2.5-4.9)
[2022-09-22 08:39] LABS: BILIRUBIN,TOTAL 0.6 mg/dL (0.2-1); TOT PROT 6.9 g/dl (6.4-8.2)
[2022-09-22] MEDS ORDERED: ARIPiprazole 2 MG TABLET PO SCH (10:00)
[2022-09-22] MEDS ORDERED: KETOROLAC TROMETHAMINE 30 MG/1 ML VIAL IVPUSH PRN ×2 (12:38→18:16)
[2022-09-22] MEDS: ENOXAPARIN NA (PORCINE) 40 MG/0.4 ML DISP.SYRIN SQ SCH (21:51)
[2022-09-23 08:08] LABS: HEMATOCRIT 36.5 % (32.4-45.2); HEMOGLOBIN 12.3 GM/dL (10.7-15.3); MCH 29.2 pg (25.7-33.7); MCHC 33.8 g/dl (32.0-36.0); MEAN CELL VOLUME 86.1 fl (80-96); MEAN PLT VOLUME 8.9 fl (7.5-11.1); PLATELET COUNT 248 10^3/uL (134-434); RBC 4.23 M/mm3 (3.60-5.2); RDW 13.2 % (11.6-15.6); WHITE BLOOD COUNT 13.4 K/mm3 (4.0-10.0)
[2022-09-23 08:20] LABS: POTASSIUM 3.8 mmol/L (3.5-5.1)
[2022-09-23 08:22] LABS: ALBUMIN 3.4 g/dl (3.4-5.0); BLOOD UREA NITROGEN 23.8 mg/dL (7-18); CALCIUM 9.1 mg/dL (8.5-10.1)
[2022-09-23 08:25] LABS: CREATININE 0.8 mg/dL (0.55-1.3); PHOSPHOROUS 2.9 mg/dL (2.5-4.9)
[2022-09-23 08:27] LABS: BILIRUBIN,TOTAL 0.8 mg/dL (0.2-1); TOT PROT 6.4 g/dl (6.4-8.2)
[2022-09-23] MEDS: ENOXAPARIN NA (PORCINE) 40 MG/0.4 ML DISP.SYRIN SQ SCH (09:09)
[2022-09-23] MEDS: ARIPiprazole 2 MG TABLET PO SCH (09:09)
[2022-09-23] MEDS: AMOX TR/POT CLAV 875MG/125MG TABLETS (FP) PO SCH ×2 (11:34→17:35)
[2022-09-23] MEDS ORDERED: traMADol HCL 50 MG TABLET PO PRN (14:17)
[2022-09-23 15:34] VITALS: RESP 18
[2022-09-23] MEDS: POLYETHYLENE GLYCOL (HEALTHYLAX) 3350 17 GM PACKET PO SCH (21:45)
[2022-09-23] MEDS: DOCUSATE SODIUM 100 MG CAPSULE (FP) PO SCH (21:46)
[2022-09-23] MEDS ORDERED: SENNOSIDES 8.6MG TABLET (FP) PO SCH (22:00)
[2022-09-24] MEDS: SENNOSIDES 8.6MG TABLET (FP) PO PRN ×2 (00:40→05:06)
[2022-09-24] MEDS: DOCUSATE SODIUM 100 MG CAPSULE (FP) PO SCH (05:04)
[2022-09-24] MEDS: AMOX TR/POT CLAV 875MG/125MG TABLETS (FP) PO SCH (08:03)
[2022-09-24 08:12] VITALS: BP 139/70; PULSE 77; TEMP 98.5
[2022-09-24 08:33] LABS: EOS % 1.7 % (0-4.5); HEMATOCRIT 39.4 % (32.4-45.2); HEMOGLOBIN 13.6 GM/dL (10.7-15.3); LYMPH % 16.3 % (8-40); MCH 29.8 pg (25.7-33.7); MCHC 34.6 g/dl (32.0-36.0); MEAN CELL VOLUME 86.1 fl (80-96); MEAN PLT VOLUME 8.9 fl (7.5-11.1); MONO % 6.3 % (3.8-10.2); NEUT % 74.7 % (42.8-82.8); PLATELET COUNT 244 10^3/uL (134-434); RBC 4.57 M/mm3 (3.60-5.2); RDW 13.2 % (11.6-15.6)
[2022-09-24 08:45] LABS: POTASSIUM 3.6 mmol/L (3.5-5.1)
[2022-09-24 08:50] LABS: CALCIUM 9.2 mg/dL (8.5-10.1)
[2022-09-24 08:51] LABS: ALBUMIN 3.6 g/dl (3.4-5.0); BLOOD UREA NITROGEN 18.9 mg/dL (7-18)
[2022-09-24 08:54] LABS: CREATININE 0.7 mg/dL (0.55-1.3)
[2022-09-24 08:57] LABS: TOT PROT 6.9 g/dl (6.4-8.2)
[2022-09-24] MEDS: ENOXAPARIN NA (PORCINE) 40 MG/0.4 ML DISP.SYRIN SQ SCH (09:40)
[2022-09-24] MEDS: POLYETHYLENE GLYCOL (HEALTHYLAX) 3350 17 GM PACKET PO SCH (09:41)
[2022-09-24] MEDS: ARIPiprazole 2 MG TABLET PO SCH (09:41)
== END 2022-09-24 11:49 | disposition home or self-care (01) | DRG 854 ==
LOC: JER 14:26 → JERBED 14:56 → J4W 09-20 00:14 → J5S 09-22 17:35
PROVIDERS: ADMIT Internal Medicine
PROC: 0FT44ZZ Resection of Gallbladder, Percutaneous Endoscopic Approach (ICD-10-PCS; principal; 2022-09-21 19:30)
DX: A41.9 Sepsis, unspecified organism (principal); K80.00 Calculus of gallbladder with acute cholecystitis without obstruction; I10 Essential (primary) hypertension; M32.9 Systemic lupus erythematosus, unspecified; F41.8 Other specified anxiety disorders; E78.5 Hyperlipidemia, unspecified; K21.9 Gastro-esophageal reflux disease without esophagitis; R74.01 Elevation of levels of liver transaminase levels; E66.9 Obesity, unspecified
CPT/HCPCS: 0241U-QW; 36415; 71045-TC-FY; 71275-TC; 74174-TC; 76705-TC; 80048; 80053; 81003; 82550; 82553; 83605; 83690; 83735; 83880; 84100; 84484; 85025; 85027; 85610; 85730; 86850; 86900; 86901; 87086; 88304-TC; 93005; 93010; 94010; 94760; 99285-25; J1644

== ENCOUNTER 2022-09-28 13:14 | Emergency (ER) | payer OTHER ==
[2022-09-28 13:29] VITALS: BP 150/69; PULSE 78; RESP 18; TEMP 98; BMI 36.3
[2022-09-28] MEDS ORDERED: SODIUM CHLORIDE 0.9% 500 ML INFUS.BAG IV ONE (14:44)
[2022-09-28] MEDS ORDERED: ONDANSETRON 4 MG/2 ML VIAL IVPUSH ONE (14:44)
[2022-09-28] MEDS ORDERED: KETOROLAC TROMETHAMINE 15 MG/ML VIAL IVPUSH ONE (14:44)
[2022-09-28] MEDS ORDERED: ACETAMINOPHEN 1000 MG/100 ML BAG IVPB ONE (14:44)
[2022-09-28] MEDS ORDERED: KETOROLAC TROMETHAMINE 15 MG/ML VIAL ONE (15:02)
[2022-09-28] MEDS ORDERED: ACETAMINOPHEN INJECTION 100 ML IVPB ONE (15:02)
[2022-09-28] MEDS ORDERED: ONDANSETRON 4 MG/2 ML VIAL ONE (15:02)
[2022-09-28 16:16] LABS: POTASSIUM 4.9 mmol/L (3.5-5.1)
[2022-09-28 16:18] LABS: BLOOD UREA NITROGEN 18.1 mg/dL (7-18); CALCIUM 9.6 mg/dL (8.5-10.1)
[2022-09-28 16:22] LABS: CREATININE 0.8 mg/dL (0.55-1.3)
[2022-09-28 17:28] LABS: BASO % 0.4 % (0-2.0); EOS % 3.1 % (0-4.5); HEMATOCRIT 38.2 % (32.4-45.2); HEMOGLOBIN 13.1 GM/dL (10.7-15.3); LYMPH % 17.9 % (8-40); MCH 29.7 pg (25.7-33.7); MCHC 34.2 g/dl (32.0-36.0); MEAN CELL VOLUME 86.7 fl (80-96); MONO % 5.5 % (3.8-10.2); NEUT % 73.1 % (42.8-82.8); PLATELET COUNT 309 10^3/uL (134-434); RBC 4.41 M/mm3 (3.60-5.2); WHITE BLOOD COUNT 13.2 K/mm3 (4.0-10.0)
== END 2022-09-28 17:43 | disposition home or self-care (01) ==
LOC: JER 13:14
PROC: 3E033NZ Introduction of Analgesics, Hypnotics, Sedatives into Peripheral Vein, Percutaneous Approach (ICD-10-PCS; principal; 2022-09-28)
PROC: 3E0333Z Introduction of Anti-inflammatory into Peripheral Vein, Percutaneous Approach (ICD-10-PCS; 2022-09-28)
PROC: 3E033GC Introduction of Other Therapeutic Substance into Peripheral Vein, Percutaneous Approach (ICD-10-PCS; 2022-09-28)
DX: R51.9 Headache, unspecified (principal)
CPT/HCPCS: 36415; 80048; 85025; 96374; 96375; 99284-25

== ENCOUNTER 2023-01-18 09:20 | Emergency (ER) | payer OTHER ==
[2023-01-18 09:31] VITALS: BP 150/97; PULSE 90; RESP 18; TEMP 98.1; BMI 38.3
[2023-01-18] MEDS ORDERED: ACETAMINOPHEN 500 MG TABLET (FP) PO ONE (09:56)
[2023-01-18] MEDS ORDERED: ACETAMINOPHEN 325 MG TABLET (FP) ONE (11:30)
[2023-01-18 11:32] LABS: EPI CELLS >36 /uL (0-25.1); HYALINE CASTS 1 /uL (0-3.1); URINE APPEARANCE CLEAR; URINE BILIRUBIN NEGATIVE (NEGATIVE); URINE COLOR YELLOW; URINE GLUCOSE (UA) NEGATIVE (NEGATIVE); URINE KETONE NEGATIVE (NEGATIVE); URINE LEUK ESTERASE TRACE (NEGATIVE); URINE NITRITE NEGATIVE (NEGATIVE); URINE PROTEIN NEGATIVE (NEGATIVE); URINE RBC 52 /uL (0-23.9); URINE WBC 13 /uL (0-25.8)
[2023-01-18 11:40] LABS: CHLORIDE 107 mmol/L (98-107); SODIUM 138 mmol/L (136-145)
[2023-01-18 11:43] LABS: ALBUMIN 3.6 g/dl (3.4-5.0); BLOOD UREA NITROGEN 19.5 mg/dL (7-18); CO2 25 mmol/L (21-32); GLUCOSE,RANDOM 108 mg/dL (74-106)
[2023-01-18 11:46] LABS: CREATININE 0.9 mg/dL (0.55-1.3); SGOT/AST 90 U/L (15-37)
[2023-01-18 11:48] LABS: BASO % 0.9 % (0-2.0); BILIRUBIN,TOTAL 0.6 mg/dL (0.2-1); EOS % 1.9 % (0-4.5); HEMATOCRIT 43.1 % (32.4-45.2); HEMOGLOBIN 14.4 GM/dL (10.7-15.3); LYMPH % 19.2 % (8-40); MCH 28.5 pg (25.7-33.7); MCHC 33.5 g/dl (32.0-36.0); MEAN CELL VOLUME 85.2 fl (80-96); MONO % 4.9 % (3.8-10.2); NEUT % 73.1 % (42.8-82.8); PLATELET COUNT 294 10^3/uL (134-434); RBC 5.06 M/mm3 (3.60-5.2); RDW 13.3 % (11.6-15.6)
[2023-01-18 11:49] LABS: ALK PHOS 152 U/L (45-117)
[2023-01-18 11:57] LABS: ANION GAP 5 MMOL/L (8-16); POTASSIUM 7.7 mmol/L (3.5-5.1); SGPT/ALT 40 U/L (13-61)
[2023-01-18 12:37] LABS: URINE BACTERIA 80 /uL (0-1359)
[2023-01-18 14:03] LABS: POTASSIUM 4.3 mmol/L (3.5-5.1)
[2023-01-18 14:06] LABS: CALCIUM 9.1 mg/dL (8.5-10.1)
[2023-01-18 14:07] LABS: BLOOD UREA NITROGEN 19.6 mg/dL (7-18)
[2023-01-18 14:11] LABS: CREATININE 0.8 mg/dL (0.55-1.3)
== END 2023-01-18 15:19 | disposition home or self-care (01) ==
LOC: JER 09:20
DX: N93.9 Abnormal uterine and vaginal bleeding, unspecified (principal); R10.32 Left lower quadrant pain; G89.29 Other chronic pain
CPT/HCPCS: 36415; 71045-TC-FY; 74177-TC; 76830-TC; 80048; 80053; 81003; 85025; 87086; 93005; 93010; 99285-25; Q9967

== ENCOUNTER 2023-08-12 10:44 | Emergency (ER) | payer OTHER ==
[2023-08-12 11:06] VITALS: BMI 37.5
[2023-08-12] MEDS ORDERED: ACETAMINOPHEN 500 MG TABLET (FP) ONE (12:54)
[2023-08-12] MEDS: ACETAMINOPHEN 500 MG TABLET (FP) PO ONE (12:57)
[2023-08-12 12:58] LABS: BASO % 1.2 % (0-2.0); EOS % 1.7 % (0-4.5); HEMATOCRIT 40.4 % (32.4-45.2); HEMOGLOBIN 13.7 GM/dL (10.7-15.3); LYMPH % 18.7 % (8-40); MCH 30.2 pg (25.7-33.7); MEAN CELL VOLUME 88.7 fl (80-96); MEAN PLT VOLUME 8.2 fl (7.5-11.1); MONO % 4.8 % (3.8-10.2); NEUT % 73.6 % (42.8-82.8); PLATELET COUNT 321 10^3/uL (134-434); RBC 4.55 M/mm3 (3.60-5.2); VENOUS BASE EXCESS 0.7 mmol/L (-2-2); VENOUS O2 SATURATION 89.9 % (70-80); VENOUS PCO2 42.9 mmHg (38-52); VENOUS PH 7.397 (7.310-7.410); WHITE BLOOD COUNT 15.7 K/mm3 (4.0-10.0)
[2023-08-12 13:01] LABS: EPI CELLS 6 /uL (0-25.1); HYALINE CASTS 1 /uL (0-3.1); URINE APPEARANCE CLEAR; URINE BACTERIA 7 /uL (0-1359); URINE BILIRUBIN NEGATIVE (NEGATIVE); URINE COLOR YELLOW; URINE GLUCOSE (UA) NEGATIVE (NEGATIVE); URINE KETONE NEGATIVE (NEGATIVE); URINE LEUK ESTERASE NEGATIVE (NEGATIVE); URINE NITRITE NEGATIVE (NEGATIVE); URINE PROTEIN TRACE (NEGATIVE); URINE RBC 70 /uL (0-23.9); URINE WBC 11 /uL (0-25.8)
[2023-08-12 13:06] LABS: INR 0.99 (0.83-1.09); PROTHROMBIN TIME (PATIENT) 11.5 SEC (9.7-13.0)
[2023-08-12 13:08] LABS: ACTIVATED PTT 30.3 SECONDS (25.2-36.5)
[2023-08-12 13:32] LABS: POTASSIUM 4.2 mmol/L (3.5-5.1)
[2023-08-12 13:34] LABS: CALCIUM 9.5 mg/dL (8.5-10.1)
[2023-08-12 13:35] LABS: MAGNESIUM 1.7 mg/dL (1.8-2.4)
[2023-08-12 13:38] LABS: CREATININE 0.8 mg/dL (0.55-1.3)
[2023-08-12 13:39] LABS: TOT PROT 7.7 g/dl (6.4-8.2)
[2023-08-12 13:40] LABS: BILIRUBIN,TOTAL 0.8 mg/dL (0.2-1)
[2023-08-12 15:49] VITALS: BP 136/75; PULSE 74; RESP 17; TEMP 98.4
== END 2023-08-12 16:28 | disposition home or self-care (01) ==
LOC: JER 10:44
DX: F32.A Depression, unspecified (principal); R45.850 Homicidal ideations; R45.851 Suicidal ideations; Z20.822 Contact with and (suspected) exposure to COVID-19
CPT/HCPCS: 0241U-QW; 36415; 71045-TC-FY; 80053; 80307; 81003; 82803; 83735; 85025; 85610; 85730; 86850; 86900; 86901; 87086; 93005; 93010; 99285-25

== ENCOUNTER 2024-04-18 14:05 | Observation (INO) | payer OTHER ==
[2024-04-18] MEDS ORDERED: FAMOTIDINE 20 MG TABLET ONE (16:18)
[2024-04-18] MEDS ORDERED: ONDANSETRON 4 MG/2 ML VIAL ONE (16:19)
[2024-04-18] MEDS ORDERED: MAG HYDROX/AL HYDROX/SIMETH 30 ML UNIT-DOSE CUP ONE (16:19)
[2024-04-18] MEDS: FAMOTIDINE 20 MG TABLET PO ONE (16:24)
[2024-04-18] MEDS: MAG HYDROX/AL HYDROX/SIMETH 30 ML UNIT-DOSE CUP PO ONE (16:24)
[2024-04-18] MEDS: ONDANSETRON 4 MG/2 ML VIAL IVPUSH ONE (16:24)
[2024-04-18 16:51] LABS: BASO % 0.9 % (0-2.0); EOS % 2.2 % (0-4.5); HEMATOCRIT 42.8 % (32.4-45.2); HEMOGLOBIN 13.9 GM/dL (10.7-15.3); MCH 28.5 pg (25.7-33.7); MCHC 32.5 g/dl (32.0-36.0); MEAN CELL VOLUME 87.5 fl (80-96); MEAN PLT VOLUME 9.1 fl (7.5-11.1); MONO % 3.6 % (3.8-10.2); NEUT % 76.3 % (42.8-82.8); PLATELET COUNT 251 10^3/uL (134-434); RBC 4.89 M/mm3 (3.60-5.2); RDW 13.7 % (11.6-15.6); WHITE BLOOD COUNT 12.6 K/mm3 (4.0-10.0)
[2024-04-18 17:08] LABS: POTASSIUM 3.6 mmol/L (3.5-5.1)
[2024-04-18 17:11] LABS: ALBUMIN 3.8 g/dl (3.4-5.0); BLOOD UREA NITROGEN 17.8 mg/dL (7-18); CALCIUM 9.8 mg/dL (8.5-10.1)
[2024-04-18 17:14] LABS: CREATININE 0.8 mg/dL (0.55-1.3)
[2024-04-18 17:15] LABS: BILIRUBIN,TOTAL 0.4 mg/dL (0.2-1)
[2024-04-18 17:16] LABS: TOT PROT 7.5 g/dl (6.4-8.2)
[2024-04-18 20:06] LABS: HIV INTERPRETATION NEGATIVE (NEGATIVE)
[2024-04-18] MEDS ORDERED: ACETAMINOPHEN INJECTION 100 ML ONE (20:29)
[2024-04-18] MEDS: ACETAMINOPHEN 1000 MG/100 ML BAG IVPB ONE (20:37)
[2024-04-18 20:45] LABS: EPI CELLS 7 /uL (0-25.1); HYALINE CASTS 1 /uL (0-3.1); PH,URINE 6.5 (5.0-8.0); URINE APPEARANCE CLEAR; URINE BACTERIA 110 /uL (0-1359); URINE BILIRUBIN NEGATIVE (NEGATIVE); URINE COLOR YELLOW; URINE GLUCOSE (UA) NEGATIVE (NEGATIVE); URINE KETONE TRACE (NEGATIVE); URINE LEUK ESTERASE NEGATIVE (NEGATIVE); URINE NITRITE NEGATIVE (NEGATIVE); URINE PROTEIN TRACE (NEGATIVE); URINE RBC 26 /uL (0-23.9); URINE WBC 7 /uL (0-25.8)
[2024-04-18] MEDS ORDERED: KETOROLAC TROMETHAMINE 10 MG TABLET PO PRN (22:39)
[2024-04-18] MEDS ORDERED: ONDANSETRON *ODT* 4 MG TABLET ONE (22:58)
[2024-04-18] MEDS: LACTATED RINGERS SOLUTION 1,000 ML/1,000 ML INFUS.BAG IV SCH (23:03)
[2024-04-18] MEDS: ONDANSETRON 8 MG TABLET (FP) PO SCH (23:03)
[2024-04-19] MEDS ORDERED: ONDANSETRON 4 MG TABLET PO ONE ×4 (04:30→21:00)
[2024-04-19] MEDS: diphenhydrAMINE HCL 25 MG CAPSULE (FP) PO ONE (04:52)
[2024-04-19 06:51] VITALS: BMI 38.0
[2024-04-19 08:50] LABS: HEMATOCRIT 43.3 % (32.4-45.2); HEMOGLOBIN 14.1 GM/dL (10.7-15.3); MCH 28.5 pg (25.7-33.7); MCHC 32.4 g/dl (32.0-36.0); MEAN CELL VOLUME 87.7 fl (80-96); MEAN PLT VOLUME 9.2 fl (7.5-11.1); PLATELET COUNT 265 10^3/uL (134-434); RBC 4.94 M/mm3 (3.60-5.2); RDW 13.6 % (11.6-15.6); WHITE BLOOD COUNT 10.5 K/mm3 (4.0-10.0)
[2024-04-19 09:05] LABS: POTASSIUM 3.8 mmol/L (3.5-5.1)
[2024-04-19] MEDS: ASPIRIN 81 MG CHEWABLE TABLETS PO SCH (09:13)
[2024-04-19 09:14] LABS: ALBUMIN 3.7 g/dl (3.4-5.0); BILIRUBIN,TOTAL 0.6 mg/dL (0.2-1); TOT PROT 7.4 g/dl (6.4-8.2)
[2024-04-19] MEDS: FAMOTIDINE 20 MG TABLET PO SCH (09:14)
[2024-04-19] MEDS: ENOXAPARIN NA (PORCINE) 40 MG/0.4 ML DISP.SYRIN SQ SCH (09:15)
[2024-04-19] MEDS: LOSARTAN POTASSIUM 50 MG TABLET PO SCH (09:15)
[2024-04-19 09:16] LABS: CREATININE 0.7 mg/dL (0.55-1.3)
[2024-04-19 09:17] LABS: MAGNESIUM 2.2 mg/dL (1.8-2.4); PHOSPHOROUS 2.9 mg/dL (2.5-4.9)
[2024-04-19] MEDS: ACETAMINOPHEN 325 MG TABLET (FP) PO PRN (15:37)
[2024-04-19] MEDS ORDERED: LACTATED RINGERS SOLUTION 1,000 ML/1,000 ML INFUS.BAG IV SCH (16:15)
[2024-04-19] MEDS: LACTATED RINGERS SOLUTION 1,000 ML/1,000 ML INFUS.BAG IV STA (16:50)
[2024-04-19] MEDS: LACTATED RINGERS SOLUTION 1,000 ML/1,000 ML INFUS.BAG IV ONE (19:10)
[2024-04-19] MEDS: ATORVASTATIN CA 10 MG TABLET (FP) PO SCH (21:58)
[2024-04-19 22:02] VITALS: RESP 18
[2024-04-19] MEDS: ONDANSETRON 4 MG TABLET PO SCH (23:43)
[2024-04-20 10:15] LABS: BASO % 0.8 % (0-2.0); HEMATOCRIT 41.9 % (32.4-45.2); HEMOGLOBIN 13.5 GM/dL (10.7-15.3); LYMPH % 20.5 % (8-40); MCHC 32.1 g/dl (32.0-36.0); MEAN CELL VOLUME 87.4 fl (80-96); NEUT % 70.7 % (42.8-82.8); PLATELET COUNT 277 10^3/uL (134-434); RDW 13.6 % (11.6-15.6); WHITE BLOOD COUNT 9.6 K/mm3 (4.0-10.0)
[2024-04-20 10:32] LABS: POTASSIUM 4.2 mmol/L (3.5-5.1)
[2024-04-20 10:34] LABS: ALBUMIN 3.8 g/dl (3.4-5.0); BLOOD UREA NITROGEN 9.7 mg/dL (7-18); CALCIUM 9.4 mg/dL (8.5-10.1); MAGNESIUM 2.2 mg/dL (1.8-2.4)
[2024-04-20 10:37] LABS: CREATININE 0.7 mg/dL (0.55-1.3)
[2024-04-20 10:39] LABS: BILIRUBIN,TOTAL 0.5 mg/dL (0.2-1); TOT PROT 7.3 g/dl (6.4-8.2)
[2024-04-20] MEDS: PEG 3350/NA SULF BICARB CL/KCL 4000 ML SOLN.RECON PO ONE (11:16)
[2024-04-20] MEDS: SIMETHICONE 80 MG TAB.CHEW (FP) PO SCH (14:03)
[2024-04-21 08:14] LABS: BASO % 0.6 % (0-2.0); EOS % 4.5 % (0-4.5); HEMATOCRIT 40.4 % (32.4-45.2); HEMOGLOBIN 13.1 GM/dL (10.7-15.3); MCH 28.5 pg (25.7-33.7); MCHC 32.6 g/dl (32.0-36.0); MEAN CELL VOLUME 87.5 fl (80-96); MEAN PLT VOLUME 8.8 fl (7.5-11.1); MONO % 4.4 % (3.8-10.2); NEUT % 74.5 % (42.8-82.8); PLATELET COUNT 270 10^3/uL (134-434); RBC 4.61 M/mm3 (3.60-5.2); RDW 13.4 % (11.6-15.6); WHITE BLOOD COUNT 7.4 K/mm3 (4.0-10.0)
[2024-04-21 08:35] LABS: POTASSIUM 3.8 mmol/L (3.5-5.1)
[2024-04-21 08:40] LABS: ALBUMIN 3.5 g/dl (3.4-5.0); BLOOD UREA NITROGEN 9.9 mg/dL (7-18); CALCIUM 9.2 mg/dL (8.5-10.1); MAGNESIUM 2.1 mg/dL (1.8-2.4)
[2024-04-21 08:43] LABS: CREATININE 0.8 mg/dL (0.55-1.3)
[2024-04-21 08:44] LABS: BILIRUBIN,TOTAL 0.6 mg/dL (0.2-1); TOT PROT 6.7 g/dl (6.4-8.2)
[2024-04-21 10:54] VITALS: BP 137/68; PULSE 79; TEMP 97.9
[2024-04-21] MEDS ORDERED: LIPASE/PROTEASE/AMYLASE 36,000 UNIT CAPSULE PO SCH (12:30)
[2024-04-21] MEDS ORDERED: metroNIDAZOLE 250 MG TABLET PO SCH (14:00)
== END 2024-04-21 13:17 | disposition home or self-care (01) ==
LOC: JER 14:05 → JERBED 20:51 → J7W 23:30
PROVIDERS: ADMIT Student in an Organized Health Care Education/Training Program; ATTEND Nurse Practitioner Acute Care
PROC: 3E033NZ Introduction of Analgesics, Hypnotics, Sedatives into Peripheral Vein, Percutaneous Approach (ICD-10-PCS; principal; 2024-04-18)
PROC: 3E023GC Introduction of Other Therapeutic Substance into Muscle, Percutaneous Approach (ICD-10-PCS; 2024-04-18)
PROC: 3E0337Z Introduction of Electrolytic and Water Balance Substance into Peripheral Vein, Percutaneous Approach (ICD-10-PCS; 2024-04-18)
PROC: 3E033GC Introduction of Other Therapeutic Substance into Peripheral Vein, Percutaneous Approach (ICD-10-PCS; 2024-04-18)
DX: K85.90 Acute pancreatitis without necrosis or infection, unspecified (principal); K90.9 Intestinal malabsorption, unspecified; K76.0 Fatty (change of) liver, not elsewhere classified; I10 Essential (primary) hypertension; E78.5 Hyperlipidemia, unspecified; M32.9 Systemic lupus erythematosus, unspecified; F32.9 Major depressive disorder, single episode, unspecified; Z85.89 Personal history of malignant neoplasm of other organs and systems
CPT/HCPCS: 36415; 74177-TC; 80053; 81003; 82272; 82784; 82787; 83605; 83690; 83735; 83883; 84100; 84478; 85025; 85027; 86140; 86803; 86850; 86900; 86901; 87086; 87389; 93005; 93010; 96361; 96372; 96374; 96375; 99285-25; G0378; J0131; Q9967